=== PATIENT | male | born 1970 ===

== ENCOUNTER 2018-04-24 09:10 | Emergency (ER) | payer MEDICAID ==
[2018-04-24 09:34] VITALS: RESP 18; O2SAT 98
[2018-04-24] MEDS ORDERED: Sodium Chloride 0.9% 1,000 ML IV ONE (10:07)
[2018-04-24] MEDS ORDERED: Lidocaine 1% Inj (20ml) INFIL STA (10:08)
[2018-04-24] MEDS ORDERED: Sodium Chloride 0.9% 1,000 ML ONE (10:21)
[2018-04-24] MEDS ORDERED: Lidocaine Hydrochloride 5 ML INJ ONE (10:24)
[2018-04-24 10:27] LABS: SQUAMOUS EPITHIAL < 1 /hpf (0-5); URINE BILIRUBIN NEGATIVE (NEGATIVE); URINE BLOOD NEGATIVE (NEGATIVE); URINE CLARITY Clear (Clear); URINE COLOR Yellow (YELLOW); URINE GLUCOSE (UA) 3+ mg/dL (Normal); URINE LEUKOCYTE ESTERASE NEG Leu/uL (Negative); URINE PROTEIN 3+ mg/dL (NEGATIVE); URINE UROBILINOGEN NORMAL mg/dL (0.2-1.0)
[2018-04-24 10:32] LABS: BASO # 0.1 K/uL (0.0-0.2); BASO % 1.2 % (0.0-2.0); EOS # 0.1 K/uL (0.0-0.7); EOS % 1.2 % (0.0-4.0); HEMOGLOBIN 14.4 g/dL (12.0-18.0); LYMPH # 2.2 K/uL (1.0-4.3); LYMPH % 32.6 % (20.0-40.0); MEAN CELL VOLUME 84.3 fL (80.0-94.0); MEAN CORPUSCULAR HEMOGLOBIN 28.8 pg (27.0-31.0); MEAN CORPUSCULAR HGB CONC 34.2 g/dL (33.0-37.0); MEAN PLATELET VOLUME 8.7 fL (7.2-11.7); MONO # 0.6 K/uL (0.0-0.8); MONO % 9.3 % (0.0-10.0); NEUT # 3.8 K/uL (1.8-7.0); NEUT % 55.7 % (50.0-75.0); RBC 4.98 Mil/uL (4.40-5.90); RED CELL DISTRIBUTION WIDTH 13.9 % (11.5-14.5); WHITE BLOOD COUNT 6.9 K/uL (4.8-10.8)
[2018-04-24 10:37] LABS: ALB/GLOB RATIO 1.2 (1.0-2.1); ALBUMIN 4.2 g/dL (3.5-5.0); ALT/SGPT 22 U/L (21-72); AST/SGOT 13 U/L (17-59); BLOOD UREA NITROGEN 16 mg/dL (9-20); CALCIUM 9.8 mg/dl (8.6-10.4); GFR NON-AFRICAN AMERICAN > 60
[2018-04-24] MEDS ORDERED: (Novolin R) Insulin Human Regular 100 units/ml vial IVP ONE (10:44)
[2018-04-24] MEDS ORDERED: (Novolin R) Insulin Human Regular 100 units/ml vial ONE (10:52)
--- NOTE | 2018-04-24 11:01 | C.PDOC ---
History Of Present Illness 48 year old male with a history of diabetes presents to the ED for evaluation of a painful mass to the lower left abdomen for the last few days. Patient reports he popped the mass yesterday, puss came out, and today the mass continues to release puss. During visit patient's sugar is 300, he notes his blood sugar is always high. Denies fever, nausea, vomiting, and any other associated symptoms. Time Seen by Provider: 04/24/18 09:59 Chief Complaint (Nursing): Abnormal Skin Integrity History Per: Patient History/Exam Limitations: no limitations Onset/Duration Of Symptoms: Waxing/Waning Current Symptoms Are (Timing): Still Present Past Medical History Reviewed: Historical Data, Nursing Documentation, Vital Signs Vital Signs: Last Vital Signs Temp 98.8 F 04/24/18 09:29 Pulse 118 H 04/24/18 09:29 Resp 18 04/24/18 09:29 BP 165/98 H 04/24/18 09:29 Pulse Ox 98 04/24/18 09:29 Family History: States: Unknown Family Hx - Social History Hx Alcohol Use: No Hx Substance Use: No - Immunization History Hx Tetanus Toxoid Vaccination: Yes Hx Influenza Vaccination: No Hx Pneumococcal Vaccination: No Review Of Systems Constitutional: Negative for: Fever Gastrointestinal: Negative for: Nausea, Vomiting Skin: Positive for: Other (mass to the lower left abdomen.) Physical Exam - Physical Exam Appears: Well Skin: Normal Color, Warm, Dry, Other (tender fluctuant draing mass to the lower left abdomen with mild surrounding erythema.) Head: Atraumatic, Normacephalic Eye(s): bilateral: Normal Inspection, EOMI Oral Mucosa: Moist Neck: Normal ROM, Supple Cardiovascular: Rhythm Regular, No Murmur Respiratory: Normal Breath Sounds, No Rales, No Rhonchi, No Wheezing Gastrointestinal/Abdominal: Bowel Sounds, Soft, Other (see skin) Extremity: Normal ROM (x4) Neurological/Psych: Oriented x3, Normal Speech Gait: Steady ED Course And Treatment - Laboratory Results Result Diagrams: 04/24/18 10:17 04/24/18 10:17 Lab Interpretation: No Acute Changes O2 Sat by Pulse Oximetry: 98 (RA) Pulse Ox Interpretation: Normal - Incision & Drainage Of Abscess Anesthesia: Lidocaine 1% Prep Used: Betadine (& povidone saline.) Procedure: Incised W/Scalpel Blade#: (15), Drained Pus, Irrigated Cavity W/Saline, Packed W/Gauze (1/2 inche), Cultures Obtained And Sent To Lab Medical Decision Making Medical Decision Making: Plan: --Blood analysis --Insulin Human Regular --Urinalysis. Progress/Update: --Incision and Drainage. --Wound Culture and Gram Stain sent. --Patient tolerated procedure well. Reassessment: Patient stable for discharge home. Prescribed Sulfamethoxazole and instructed to take medications as prescribed. Patient advised: Keep area clean and dry. May wash gently with soap and water, do not use alcohol or iodine solution. Return to ER if fever occurs, redness or swelling around wound, pus in the wound. Please follow up with your primary doctor, clinic, or urgent care for packing removal in 2 days. Disposition Counseled Patient/Family Regarding: Diagnosis, Need For Followup, Rx Given - Disposition [facility]Outside[facility] Disposition: HOME/ ROUTINE Disposition Time: 11:44 Condition: STABLE Additional Instructions: Rx sent to [facility] pharmacy Keep area clean and dry. May wash gently with soap and water. Change dressing 1- 2 times daily. Please follow up with your primary doctor, clinic, or urgent care for packing removal in 2 days. 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 - Scribe Statement The provider has reviewed the documentation as recorded by the Scribe (Melinda Stallings) All medical record entries made by the Scribe were at my direction and pe rsonally dictated by me. I have reviewed the chart and agree that the record accurately reflects my personal performance of the history, physical exam, medical decision making, and the department course for this patient. I have also personally directed, reviewed, and agree with the discharge instructions and disposition.
[2018-04-24] MEDS ORDERED: cefTRIAXone IV 1 gm in Dextros 50 ML IV STA (11:12)
[2018-04-24] MEDS ORDERED: cefTRIAXone 1 gm 1 GM/100 ML BAG IVPB ONE (11:24)
[2018-04-24 12:00] VITALS: BP 146/89; PULSE 89; TEMP 98
== END 2018-04-24 12:00 | disposition home or self-care (01) ==
LOC: C.ER 09:10
DX: L02.211 Cutaneous abscess of abdominal wall (principal)
CPT/HCPCS: 10060; 80053; 81001; 82948; 85025; 87070; 87206; 96365; 96375; 99284; J0696; J7030